=== PATIENT | female | born 1950 | race Hispanic/Latino ===

== ENCOUNTER → 2022-06-06 | Outpatient (CLI) | payer OTHER, MEDICARE ==
[2022-06-06 12:28] LABS: BASOPHILS % (AUTO) 0.3 % (0.0-5.0); EOSINOPHILS % (AUTO) 0.9 % (0.0-8.0); LYMPHOCYTES % (AUTO) 19.4 % (21.0-51.0); MEAN CORPUSCULAR HEMOGLOBIN 29.7 pg (27.0-33.0); MEAN CORPUSCULAR HGB CONC 32.9 g/dL (32.0-36.0); MEAN CORPUSCULAR VOLUME 90.5 fL (79-99); MONOCYTES % (AUTO) 7.9 % (3.0-13.0); NEUTROPHILS % (AUTO) 71.2 % (40.0-77.0); PLATELET COUNT (AUTO) 262 K/uL (130-400); RED BLOOD CELL COUNT(AUTO) 4.64 MIL/uL (4.00-5.50); RED CELL DISTRIBUTION WIDTH 13.1 % (11.0-15.5); WHITE BLOOD COUNT (AUTO) 10.9 K/uL (4.8-10.8)
[2022-06-06 12:48] LABS: CREATININE 0.8 mg/dL (0.5-1.5); POTASSIUM 3.6 mmol/L (3.5-5.1)
[2022-06-06 13:22] LABS: HEMOGLOBIN A1C 6.1 % (4.0-6.0)
== END | disposition home or self-care (01) ==
LOC: LAB 10:47
PROVIDERS: ATTEND Internal Medicine
DX: I10 Essential (primary) hypertension (principal); I42.8 Other cardiomyopathies; Z79.899 Other long term (current) drug therapy
CPT/HCPCS: 36415; 80048; 80061; 83036; 85025

== ENCOUNTER → 2022-07-17 | Outpatient (CLI) | payer OTHER, MEDICARE | END | disposition home or self-care (01) | LOC: RAH 13:19 | PROVIDERS: ATTEND Internal Medicine | DX: R22.42 Localized swelling, mass and lump, left lower limb (principal); R22.32 Localized swelling, mass and lump, left upper limb | CPT/HCPCS: 76882 ==

== ENCOUNTER → 2022-09-09 | Outpatient (CLI) | payer OTHER, MEDICARE | END | disposition home or self-care (01) | LOC: SHCH 08:39 | PROVIDERS: ATTEND Internal Medicine | DX: I34.0 Nonrheumatic mitral (valve) insufficiency (principal); I42.8 Other cardiomyopathies | CPT/HCPCS: 93306 ==

== ENCOUNTER → 2023-11-13 | Outpatient (CLI) | payer OTHER, MEDICARE ==
[~2023-11-13] MED LIST: IOHEXOL-350 50ML VIAL IV ONE
== END | disposition home or self-care (01) ==
LOC: RAH 12:54
PROVIDERS: ATTEND Internal Medicine
DX: R44.3 Hallucinations, unspecified (principal); G31.9 Degenerative disease of nervous system, unspecified
CPT/HCPCS: 70470; Q9967

== ENCOUNTER → 2024-01-08 | Outpatient (CLI) | payer OTHER, MEDICARE | END | disposition home or self-care (01) | LOC: RAH 12:22 | PROVIDERS: ATTEND Internal Medicine | DX: R59.0 Localized enlarged lymph nodes (principal); C85.10 Unspecified B-cell lymphoma, unspecified site | CPT/HCPCS: 76536 ==

== ENCOUNTER → 2024-06-09 | Outpatient (CLI) | payer OTHER, MEDICARE ==
[~2024-06-09] MED LIST changes: -IOHEXOL-350 50ML VIAL IV ONE; +IOHEXOL-350 75 ML VIAL IV ONE
== END | disposition home or self-care (01) ==
LOC: RAH 10:27
PROVIDERS: ATTEND Internal Medicine
DX: K57.30 Diverticulosis of large intestine without perforation or abscess without bleeding (principal); N39.42 Incontinence without sensory awareness
CPT/HCPCS: 74178; Q9967

== ENCOUNTER → 2024-10-20 | Outpatient (CLI) | payer OTHER, MEDICARE ==
--- NOTE | 2024-10-20 12:36 | HMCIMG ---
Exam: Renal and both are sonogram Reason: Microscopic hematuria. FINDINGS: Right kidney is 10.2 x 4.7 x 4.3 cm, left 8.5 x 3.9 x 3.6 cm. Cortical thickness is preserved on the right, there is mild to moderate cortical thinning on the left. The left kidney is also somewhat echogenic. There is no mass, stone or hydronephrosis. Urinary bladder appears normal. Prevoid volume was 160.7 cc. Postvoid volume was 19 cc. There is no evidence of wall thickening or mass. IMPRESSION: 1. Partially atrophic the left kidney with some cortical thinning and increased echogenicity. 2. Otherwise unremarkable renal and bladder sonogram.
== END | disposition home or self-care (01) ==
LOC: RAH 10:30
PROVIDERS: ATTEND Urology
DX: R31.29 Other microscopic hematuria (principal)
CPT/HCPCS: 76770